=== PATIENT | male | born 1965 | race Caucasian/White ===

== ENCOUNTER 2017-12-18 10:01 | Outpatient (CLI) | payer OTHER ==
--- NOTE | 2017-12-18 10:58 | RAD ---
LUMBAR SPINE THREE VIEWS: Date: 12-18-17 Comparison: None. History: Lumbar pain. FINDINGS: Neutral lateral examination demonstrates anterolisthesis of L5 on S1 measuring 6 mm. There is retroli sthesis on neutral lateral imaging at L4-5 measuring 6 mm, at L3-4 measuring 7 mm, and at L2-3 measur ing 6 mm. With extension, the anterolisthesis of L5 on S1 decreases to 4 mm. The retrolisthesis of L4 on L5 is stable at 5-6 mm, the retrolisthesis at L3-4 is stable at 7 mm and the retrolisthesis at L2 -3 is stable at 6 mm. With flexion, anterolisthesis of L5 on S1 measures 8-9 mm. The retrolisthesis o f L4 on L5 is no longer seen. L2-3 and L3-4 levels also demonstrate no significant retrolisthesis on flexion imaging. There is disc space narrowing with anterior osteophyte formation at L2-3, L3-4, and L4-5. IMPRESSION: Degenerative changes and anterolisthesis/retrolisthesis as detailed above. POS: [facility]
== END 2017-12-18 10:02 | disposition home or self-care (01) ==
LOC: RAD 10:01
PROVIDERS: ATTEND Nurse Practitioner Family
DX: M43.17 Spondylolisthesis, lumbosacral region (principal); M43.16 Spondylolisthesis, lumbar region; M47.896 Other spondylosis, lumbar region
CPT/HCPCS: 72100

== ENCOUNTER 2018-01-23 07:55 | Outpatient (CLI) | payer OTHER ==
--- NOTE | 2018-01-23 09:24 | MRI ---
MRI LUMBAR SPINE NONCONTRAST: Date: 01/23/18 HISTORY: Low back pain with right leg radiculopathy. FINDINGS: The conus medullaris has a normal appearance. The is desiccation of the lowest four intervertebral di scs. Scattered discogenic end plate changes within the bone marrow. T12-L1, L1-2: Mild osteophytosis. Central canal and neural foramina are patent. L2-3: Disc space narrowing. Minimal degenerative retrolisthesis and disc bulge. Small amount of flui d within the facets. Central canal is patent. Mild to moderate stenosis of each neural foramen. L3-4: Disc space narrowing. Discogenic end plate changes most pronounced at this level. Posterior di sc bulge and circumferential degenerative changes with mild stenosis of the central canal and moderat e to severe stenosis of each neural foramen. L4-5: Mild disc space narrowing. Posterior disc bulge and circumferential degenerative changes. Mode rate stenosis at the central canal. Severe bilateral foraminal stenoses, right greater than left. L5-S1: Minimal degenerative spondylolisthesis. Fluid in the facets. Mild disc bulge. Thecal sac is p atent. Severe bilateral foraminal stenoses, left greater than right. IMPRESSION: Prominent multilevel degenerative changes throughout the lumbar spine. Stenoses are most severe at th e right L4-5 and left L5-S1 neural foramina. Clinical correlation regarding the right L4 and left L5 dermatomes is required. POS: [facility]
== END 2018-01-23 07:56 | disposition home or self-care (01) ==
LOC: TBSIIMAG 07:55
PROVIDERS: ATTEND Neurological Surgery
DX: M47.26 Other spondylosis with radiculopathy, lumbar region (principal); M99.83 Other biomechanical lesions of lumbar region
CPT/HCPCS: 72148

== ENCOUNTER 2018-02-03 08:28 | Outpatient (CLI) | payer OTHER ==
[2018-02-03 09:28] LABS: Hemoglobin 15.9 g/dL (14.0-18.0); Mean Corpuscular HGB CONC 32.9 g/dL (32.0-36.0); Mean Corpuscular Hemoglobin 32.2 pg (27.0-31.0); Mean Corpuscular Volume 97.7 fL (78.0-98.0); Mean Platelet Volume 8.5 fL (7.4-10.4); Platelet Count 184 thou/uL (130-400); RBC Distribution Width 13.3 % (11.5-14.5); Red Blood Cell (RBC) Count 4.95 mill/uL (4.70-6.10); White Blood Cell (WBC) Count 11.9 thou/uL (4.8-10.8)
[2018-02-03 09:47] LABS: Anion Gap 13 mmol/L (10-20); BUN (Urea Nitrogen) 14 mg/dL (8.4-25.7); Calc. Creatinine Clearance 0 mL/min (70-130); Calcium 9.5 mg/dL (7.8-10.44); Carbon Dioxide 27 mmol/L (22-29); Chloride 104 mmol/L (98-107); Estimated GFR-MDRD Greater than 90; Glucose 123 mg/dL (70-105); Sodium 140 mmol/L (136-145)
== END 2018-02-03 08:29 | disposition home or self-care (01) ==
LOC: LABBT 08:28
PROVIDERS: ATTEND Neurological Surgery
DX: Z01.818 Encounter for other preprocedural examination (principal); M54.16 Radiculopathy, lumbar region
CPT/HCPCS: 80048; 85027; 87081; 93005; 93010

== ENCOUNTER 2018-02-03 08:30 | Inpatient (IN) | payer OTHER ==
[2018-02-03 08:37] VITALS: BMI 32.1
[2018-02-09] MEDS ORDERED: CEFAZOLIN 2 GM/50 ML BAG ONE (06:22)
[2018-02-09] MEDS ORDERED: Fentanyl 100 MCG/2 ML VIAL ONE ×4 (06:29→10:18)
[2018-02-09] MEDS ORDERED: Sodium Chloride 0.9% 10 ML ONE (06:32)
[2018-02-09] MEDS ORDERED: Ondansetron HCl/PF 4 MG/2 ML Vial IVP PRN (09:25)
[2018-02-09] MEDS ORDERED: Promethazine HCl 25 MG/ML VIAL SLOW IVP PRN (09:25)
[2018-02-09] MEDS ORDERED: Promethazine HCl 25 MG/ML VIAL IM PRN ×2 (09:25→09:47)
[2018-02-09] MEDS ORDERED: diphenhydrAMINE 25 MG CAP PO PRN (09:47)
[2018-02-09] MEDS ORDERED: HYDROcodone/Acetaminophen 10/325 mg Tablet PO PRN (09:47)
[2018-02-09] MEDS ORDERED: Promethazine HCl 12.5 MG SUPP PR PRN (09:47)
[2018-02-09] MEDS ORDERED: Promethazine 25 MG TAB PO PRN (09:47)
[2018-02-09] MEDS ORDERED: diphenhydrAMINE 50 MG/ML VIAL IVP PRN (09:47)
[2018-02-09] MEDS ORDERED: Milk Of Magnesia 30 ML UDCUP PO PRN (09:47)
[2018-02-09] MEDS ORDERED: tiZANidine HCl 4 MG TAB ONE (09:47)
[2018-02-09] MEDS ORDERED: Mag-Al 1200 mg/1200 mg/30 ML UDCUP PO PRN (09:47)
--- NOTE | 2018-02-09 09:49 | OP ---
DATE OF PROCEDURE: 02/09/2018 SURGEON: Oz Kirby M.D. [facility] OPERATOR: Walter Ballard PA-C. PROCEDURES PERFORMED: L3-S1 decompressive laminectomy, posterolateral arthrodesis, pedicle screw ins trumentation, demineralized bone matrix, local morselized autograft L3-S1. PROCEDURE IN DETAIL: The patient was brought to the operating room and intubated. He was rolled in the prone position on gel-filled chest rolls. Incision was made exposing L3 through the sacrum and o ur level was confirmed by x-ray. We performed bilateral hemilaminotomies at each affected level for the purpose of decompression. We next placed pedicle screws at L3, L4, L5, and S1 bilaterally using lateral fluoroscopic guidance and positioning was confirmed with rotational x-ray. A rajani was secured between the screws and significant distraction was placed at L4-L5 and L5-S1. The rods were then se cured by nuts and final tightened. The wound was then extensively irrigated, immaculate hemostasis w as secured. A combination of demineralized bone matrix, local morselized autograft was laid over the laminar and posterolateral surfaces for the purpose of arthrodesis. Vancomycin powder was applied a nd the wound was then closed in anatomic layers.
[2018-02-09] MEDS ORDERED: ACETAMINOPHEN PO PRN (10:06)
[2018-02-09] MEDS ORDERED: CODEINE PO PRN (10:06)
[2018-02-09] MEDS ORDERED: Methocarbamol 500 MG TAB PO PRN (10:08)
[2018-02-09] MEDS: Sodium Chloride 0.9% 1,000 ML IV SCH (11:04)
[2018-02-09] MEDS: HYDROcodone/Acetaminophen 10/325 mg Tablet PO PRN ×3 (11:32→19:52)
[2018-02-09] MEDS: Morphine 4 MG/ML VIAL SLOW IVP PRN ×2 (12:43→23:09)
[2018-02-09] MEDS ORDERED: PHENYLEPHRINE-NS 100 MCG/ML 10 ML SYRINGE ONE (14:02)
[2018-02-09] MEDS ORDERED: Dexamethasone 20 MG/5 ML VIAL ONE (14:02)
[2018-02-09] MEDS ORDERED: PROPOFOL 200 MG/20 ML VIAL ONE (14:02)
[2018-02-09] MEDS ORDERED: Ketorolac Tromethamine 30 MG/ML VIAL ONE (14:02)
[2018-02-09] MEDS ORDERED: Ondansetron PF 4 MG/2 ML Vial ONE (14:02)
[2018-02-09] MEDS ORDERED: Lidocaine 1% PF 5 ML VIAL ONE (14:02)
[2018-02-09] MEDS ORDERED: ePHEDrine/0.9% NaCl/PF SYRINGE 50 mg/10 ml ONE (14:02)
[2018-02-09] MEDS ORDERED: Glycopyrrolate 0.2 MG/ML 5 ML SYRINGE ONE (14:02)
[2018-02-09] MEDS: tiZANidine HCl 4 MG TAB PO PRN ×2 (15:33→23:10)
[2018-02-09] MEDS: CEFAZOLIN 2 GM/50 ML-DEXTROSE 2 GM in Premix Bag 1 BAG IVPB SCH ×2 (15:36→23:05)
[2018-02-09] MEDS ORDERED: Ondansetron PF 4 MG/2 ML Vial IVP PRN (16:47)
[2018-02-09] MEDS: Pregabalin 75 MG CAP PO SCH (19:51)
[2018-02-10] MEDS: Sodium Chloride 0.9% 1,000 ML IV SCH ×2 (00:47→08:19)
[2018-02-10] MEDS: HYDROcodone/Acetaminophen 10/325 mg Tablet PO PRN ×2 (03:21→07:45)
[2018-02-10] MEDS: tiZANidine HCl 4 MG TAB PO PRN (05:53)
[2018-02-10 07:44] VITALS: BP 121/70; TEMP 98.4
[2018-02-10] MEDS: Pregabalin 75 MG CAP PO SCH (07:44)
[2018-02-10] MEDS: CEFAZOLIN 2 GM/50 ML-DEXTROSE 2 GM in Premix Bag 1 BAG IVPB SCH (07:45)
--- NOTE | 2018-02-10 11:38 | DIS ---
DATE OF ADMISSION: 02/09/2018 DATE OF DISCHARGE: 02/10/2018 ATTENDING PHYSICIAN: Dr. Oz Kirby. HOSPITAL COURSE: The patient is a 52-year-old male status post L3-S1 diskectomy and fusion for lumbar spondylosis. Following his procedure, he was transitioned to the med/surg floor where hi s pain was well controlled with p.o. medications, he was tolerating regular diet, and voiding appropr iately. He did have a IVON drain placed intraoperatively and its input trended down nicely with only 1 5 mL out overnight. The patient was up ambulating easily throughout the department. On my exam this morning, he is awake, alert, and comfortable. He has free active range of motion of all extremities, 5/5 strength throughout. Sensation is intact to light touch. There is a small amou nt of drainage on the dressing, which was noted immediately postop. No active drainage is appreciate d. We will plan to dismiss the patient to home. I have discussed home care precautions. The patient wa s provided scripts with hydrocodone, Zanaflex, Keflex . We will plan to follow up the patient i n 2 weeks for recheck.
== END 2018-02-10 10:10 | disposition home or self-care (01) | DRG 460 ==
LOC: SURG A 02-09 05:56
PROVIDERS: ADMIT Neurological Surgery; ATTEND Neurological Surgery
PROC: 0SG3071 Fusion of Lumbosacral Joint with Autologous Tissue Substitute, Posterior Approach, Posterior Column, Open Approach (ICD-10-PCS; principal; 2018-02-09)
PROC: 0SB40ZZ Excision of Lumbosacral Disc, Open Approach (ICD-10-PCS; 2018-02-09)
DX: M54.16 Radiculopathy, lumbar region (principal); M47.9 Spondylosis, unspecified; Z79.899 Other long term (current) drug therapy; Z79.891 Long term (current) use of opiate analgesic
CPT/HCPCS: 76001; 90471; 90686; C1713; C1768; G0008; G8978-GP-CI; G8979-GP-CI; G8980-GP-CI; J0131; J1100; J1200; J1885; J2001; J2270; J2405; J2704; J3010; J3370; J3490

== ENCOUNTER 2018-02-26 15:09 | Outpatient (CLI) | payer OTHER ==
--- NOTE | 2018-02-26 15:27 | RAD ---
TWO VIEWS OF THE LUMBAR SPINE: DATE: 02/26/2018. COMPARISON: 12/18/2017. HISTORY: Lumbar spine radiculopathy. FINDINGS: There is new multilevel posterior fusion hardware which consists of bilateral L3, L4, L5, and S1 pedi diane screws and vertically oriented interlocking rods. Cutaneous zeferino are seen posteriorly. Minimal residual retrolisthesis at L2-3, L3-4, and L4-5. There is multilevel disk space narrowing wi th degenerative end plate change and anterior osteophyte formation at L3-4 and L4-5. No evidence for hardware failure. No acute fracture. IMPRESSION: Postoperative and degenerative changes of the lumbar spine as detailed above. POS: [facility]
== END 2018-02-26 15:10 | disposition home or self-care (01) ==
LOC: TBSIIMAG 15:09
PROVIDERS: ATTEND Neurological Surgery
DX: M47.26 Other spondylosis with radiculopathy, lumbar region (principal); Z98.1 Arthrodesis status
CPT/HCPCS: 72100

== ENCOUNTER 2018-04-09 13:34 | Outpatient (CLI) | payer OTHER ==
--- NOTE | 2018-04-09 14:28 | RAD ---
TWO VIEWS LUMBAR SPINE: HISTORY: Back pain. Previous history of fusion. FINDINGS: AP and lateral views of the lumbar spine are obtained on 04/09/2018. Comparison is made to previous e xam from 02/26/2018. Two views of the lumbar spine demonstrate posterior lumbar spine fusion involving the L3, L4, L5, an d S1 vertebral levels. Lumbar spine alignment is within normal limits. Disk space height loss is se en at the L2-3, L3-4, L4-5, and l5-S1 disk spaces. Radiographic appearance of the lumbar spine is stable and unchanged since the previous exam from Dece mber of 2018. IMPRESSION: L3 through S1 fusion. No significant interval change is seen. POS: [facility]
== END 2018-04-09 13:35 | disposition home or self-care (01) ==
LOC: TBSIIMAG 13:34
PROVIDERS: ATTEND Neurological Surgery
DX: M51.36 Other intervertebral disc degeneration, lumbar region (principal); Q76.2 Congenital spondylolisthesis; Z98.1 Arthrodesis status
CPT/HCPCS: 72100

== ENCOUNTER 2018-12-15 10:41 | Outpatient (CLI) | payer OTHER ==
--- NOTE | 2018-12-15 12:40 | RAD ---
LUMBAR SPINE 4 VIEWS: INDICATION: Lumbar radiculopathy. COMPARISON: Comparison is made to lumbar film of 04/09/2018. FINDINGS: Pedicle screws and rods are again seen transfixing L3, L4, L5, and S1 levels. Loss of disk space wit h degenerative disk changes prominent at L2-3, L3-4, and L4-5, stable in appearance. Slight posterior listhesis at L3-4 is stable. Mild vertebral body height loss at L3, L4, and L5 is s table. Anterior and lateral osteophytes are unchanged. The posterior listhesis at L3-4 does not appear to have significantly changed with flexion or extensi on. IMPRESSION: Postoperative and degenerative changes lumbar spine appear stable. POS: [facility]
--- NOTE | 2018-12-15 12:59 | MRI ---
EXAM: MRI Lumbar Spine WO Con PROVIDED CLINICAL HISTORY: Lumbar radiculopathy COMPARISON: 01/23/2018 FINDINGS: 5 lumbar vertebral bodies are assumed. Lumbar alignment appears normal. Vertebral body heights appear preserved. Interval placement of bilateral pedicle screws and vertical interconnecting rods spanning L3-S1. Regional marrow signal unaffected by metallic susceptibility artifact demonstrates no significant abnormality. The conus medullaris is normal in signal and terminates at an appropriate level. At L1-2, there is no significant central canal or foraminal narrowing apparent. At L2-3, there is disc space height loss and endplate degenerative change with a broad-based disc bul ge. There is mild central canal stenosis. No significant foraminal narrowing apparent. At L3-4, there is a broad-based disc bulge and endplate degenerative changes. There is no significant central canal stenosis apparent. Mild bilateral foraminal narrowing. At L4-5, there is a broad-based disc bulge. This is eccentric in the bilateral foraminal and post for aminal regions with potential for impingement on the exiting L4 nerve roots bilaterally. At L5-S1, there is a broad-based disc bulge and bilateral facet arthritis. There is circumferential a ttenuation of the thecal sac due to prominence of the caudal epidural fat. There is bilateral foraminal narrowing, moderate-severe bilaterally, with potential for impingement on the exiting L5 ne rve roots bilaterally. IMPRESSION: Lumbar degenerative changes as described above, producing primarily foraminal narrowing that appears similar to the prior study.
== END 2018-12-15 10:42 | disposition home or self-care (01) ==
LOC: SCSMRI 10:41
PROVIDERS: ATTEND Specialist
DX: M47.26 Other spondylosis with radiculopathy, lumbar region (principal); M48.061 Spinal stenosis, lumbar region without neurogenic claudication; M48.07 Spinal stenosis, lumbosacral region
CPT/HCPCS: 72110; 72148

== ENCOUNTER 2019-03-17 21:58 | Inpatient (IN) | payer OTHER ==
[~2019-03-17 21:58] MED LIST: Iopamidol-370 76% 500 ML 1 ML ONE
[2019-03-17 22:39] LABS: #Neutrophils 9.1 thou/uL (1.40-6.50); %Eosinophils 0.1 % (0.0-10.0); %Lymphocytes 9.1 % (21.0-51.0); %Neutrophils 81.9 % (42.0-75.0); Hemoglobin 14.8 g/dL (14.0-18.0); Mean Corpuscular HGB CONC 32.8 g/dL (32.0-36.0); Mean Corpuscular Hemoglobin 32.3 pg (27.0-31.0); Mean Corpuscular Volume 98.3 fL (78.0-98.0); Mean Platelet Volume 7.9 fL (7.4-10.4); Platelet Count 159 thou/uL (130-400); RBC Distribution Width 13.2 % (11.5-14.5); Red Blood Cell (RBC) Count 4.59 mill/uL (4.70-6.10); White Blood Cell (WBC) Count 11.1 thou/uL (4.8-10.8)
--- NOTE | 2019-03-17 22:44 | CT ---
EXAM: CT pulmonary angiogram with IV contrast and 3-D MIP reconstructions PROVIDED CLINICAL HISTORY: Hypoxia COMPARISON: None FINDINGS: There is no evidence for central or segmental pulmonary embolus. Vascular calcification including cor onary calcium. The lungs are free of significant opacity. Hamartoma noted involving the left upper lobe anteriorly. No pleural fluid or pneumothorax apparent. No evidence for thoracic lymph node enlargement. The airway appears patent and of normal caliber. The visualized portions of the upper abdomen demonstrate no acute findings. The osseous structures de monstrate no concerning lytic or blastic lesions. IMPRESSION: No evidence for central or segmental pulmonary embolus.
[2019-03-17 22:55] LABS: ALT (SGPT) 18 U/L (8-55); AST (SGOT) 15 U/L (5-34); Albumin 3.7 g/dL (3.5-5.0); Alkaline Phosphatase 69 U/L (40-110); Anion Gap 13 mmol/L (10-20); BUN (Urea Nitrogen) 21 mg/dL (8.4-25.7); Bilirubin, Total 0.2 mg/dL (0.2-1.2); Calc. Creatinine Clearance 0 mL/min (70-130); Calcium 7.9 mg/dL (7.8-10.44); Carbon Dioxide 28 mmol/L (22-29); Chloride 100 mmol/L (98-107); Estimated GFR-MDRD 41; Glucose 151 mg/dL (70-105); Potassium 5.1 mmol/L (3.5-5.1); Protein, Total 6.7 g/dL (6.0-8.3); Sodium 136 mmol/L (136-145)
[2019-03-17] MEDS ORDERED: Azithromycin 500 MG VIAL ONE (23:11)
[2019-03-17 23:23] LABS: CKMB 5.9 ng/mL (0-6.6)
[2019-03-17 23:42] LABS: PTT 31.4 SEC (22.9-36.1); Prothrombin Time 13.5 SEC (12.0-14.7)
[2019-03-18] MEDS ORDERED: Enoxaparin Sodium 60 MG/0.6 ML SYRINGE ONE ×2 (00:04→00:05)
[2019-03-18] MEDS ORDERED: Sodium Chloride 0.9% 1,000 ML IV SCH (01:19)
[2019-03-18 01:26] VITALS: BMI 35.9
--- NOTE | 2019-03-18 01:52 | PDOC.HHP ---
Hospitalist HPI - History of Present Illness Lethargy History of Present Illness: Patient is a 53 year old male with PMH COPD, back pain who was brought to hospital initially for lethargy, transferred from [facility] in [place] for NSTEMI, pneumonia, PADMINI. Reports alcohol intake last night and girlfriend found him lethargic and hard to rouse and called EMS. He reports shortness of breath for last week worsening gradually. Medications reviewed and significant for multiple sedating meds including buprenorphine, buproprion, methocarbamol, zanaflex which he took yesterday in addition to 3 beers, but he normally drinks beer and takes these meds since 2018 with no issues. pain meds are due to chronic back pain from accident. At outside hospital Cr 1.7, TnI 0.07, CXR with bilateral pneumonia, CT head unremarkable, WBC 13, strep/flu screen negative, O2 sat was 85 but improved to 95 when stimulated. EKG w/ RBBB and tachycardia. In ED here, troponin had risen to 0.588, patient given lovenox, ASA, rocephin, azithromycin, Sound consulted for admission. He had narcan at outside facility with little effect. CT PE without embolism. Hospitalist ROS - Review of Systems Constitutional: reports: chills. denies: fever Eyes: denies: eyelid inflammation, redness ENT: denies: throat pain, throat swelling Respiratory: reports: cough, shortness of breath Cardiovascular: reports: chest pain Gastrointestinal: denies: nausea, vomiting, abdominal pain, diarrhea, constipation, melena, hematochezia, other Genitourinary: denies: dysuria, frequency, incontinence, hematuria, retention, other Musculoskeletal: denies: neck pain, shoulder pain, arm pain, back pain, hand pain, leg pain, foot pain, other Skin: denies: rash, lesions, vidhi, bruising, other Neurological: denies: weakness, numbness All other systems reviewed; all pertinent +/- noted in HPI/Subj Hospitalist History - Past Medical History Other Medical History: COPD chronic back pain - Past Surgical History Other Surgical History: back surgery - Family History Family History: reports: no pertinent history - Social History Smoking Status: Current every day smoker - Exam General Appearance: NAD, awake alert Eye: PERRL, anicteric sclera ENT: normocephalic atraumatic, no oropharyngeal lesions, moist mucosa Neck: supple, symmetric, no JVD, no thyromegaly, no lymphadenopathy, no carotid bruit Heart: RRR, no murmur, no gallops, no rubs, normal peripheral pulses Respiratory: CTAB, no wheezes, no rales, no ronchi, normal chest expansion, no tachypnea, normal percussion Gastrointestinal: soft, non-tender, non-distended, normal bowel sounds, no palpable masses, no hepatomegaly, no splenomegaly, no bruit Extremities: no cyanosis, no clubbing, no edema Skin: normal turgor, no lesions, no rashes Neurological: cranial nerve grossly intact, normal sensation to touch, no weakness, no focal deficits, no new deficit Musculoskeletal: normal tone, normal strength, no muscle wasting Psychiatric: normal affect, normal behavior, A&O x 3 Hospitalist Results - Labs Result Diagrams: 03/17/19 22:25 03/17/19 22:25 Lab results: WBC 11.1 thou/uL (4.8-10.8) H 03/17/19 22:25 Hgb 14.8 g/dL (14.0-18.0) 03/17/19 22:25 Hct 45.1 % (42.0-52.0) 03/17/19 22:25 MCV 98.3 fL (78.0-98.0) H 03/17/19 22:25 Plt Count 159 thou/uL (130-400) 03/17/19 22:25 Neutrophils % 81.9 % (42.0-75.0) H 03/17/19 22:25 Sodium 136 mmol/L (136-145) 03/17/19 22:25 Potassium 5.1 mmol/L (3.5-5.1) 03/17/19 22:25 Chloride 100 mmol/L (98-107) 03/17/19 22:25 Carbon Dioxide 28 mmol/L (22-29) 03/17/19 22:25 BUN 21 mg/dL (8.4-25.7) 03/17/19 22:25 Creatinine 1.73 mg/dL (0.7-1.3) H 03/17/19 22:25 Glucose 151 mg/dL (70-105) H 03/17/19 22:25 Calcium 7.9 mg/dL (7.8-10.44) 03/17/19 22:25 Total Bilirubin 0.2 mg/dL (0.2-1.2) 03/17/19 22:25 AST 15 U/L (5-34) 03/17/19 22:25 ALT 18 U/L (8-55) 03/17/19 22:25 Alkaline Phosphatase 69 U/L (40-110) 03/17/19 22:25 CK-MB (CK-2) 5.9 ng/mL (0-6.6) 03/17/19 22:25 Troponin I 0.588 ng/mL (< 0.028) H* 03/17/19 22:25 B-Natriuretic Peptide 228.7 pg/mL (0-100) H 03/17/19 22:25 Serum Total Protein 6.7 g/dL (6.0-8.3) 03/17/19 22:25 Albumin 3.7 g/dL (3.5-5.0) 03/17/19 22:25 Additional comment: EKG reviewed - EKG Interpretation EKG: BP: 101/75 Pulse: 103 Resp: 18 Temp: 98.9 (Oral) Pain: 0 O2 sat: 96 on (Room Air) Time: 03/18/2019 00:38. Hospitalist H&P A/P - Plan Plan: Patient is a 53 year old male with PMH COPD, back pain who was brought to hospital initially for lethargy, transferred from [facility] in [place] for NSTEMI, pneumonia, PADMINI. # bilateral pneumonia - continue azithromycin/ceftriaxone # NSTEMI - trend troponin, consult cardiology, continue lovenox/ASA/statin/beta jose a - sees Dr Ann never had stress test or echo he reports no cardiac history # sepsis due to pneumonia - treat as above # PADMINI - presume due to sepsis, hydrate 1L and repeat BMP daily # hypoxia - resolved, due to pna
[2019-03-18 02:05] LABS: Troponin I 0.871 ng/mL (< 0.028)
[2019-03-18] MEDS ORDERED: Promethazine HCl 12.5 MG in Sodium Chloride 0.9% 50 ML IVPB PRN (02:24)
[2019-03-18] MEDS ORDERED: Ondansetron PF 4 MG/2 ML Vial IVP PRN (02:24)
[2019-03-18] MEDS ORDERED: hydrALAZINE 20 MG/ML VIAL SLOW IVP PRN (02:24)
[2019-03-18] MEDS ORDERED: cloNIDine 0.1 MG TAB PO PRN (02:24)
[2019-03-18] MEDS ORDERED: Methocarbamol 500 MG TAB PO PRN (02:44)
[2019-03-18] MEDS ORDERED: tiZANidine HCl 4 MG TAB PO PRN (02:44)
[2019-03-18] MEDS ORDERED: Acetaminophen/Codeine 30-300mg Tablet PO PRN (02:44)
[2019-03-18] MEDS ORDERED: Senokot S 8.6-50 MG TAB PO PRN (02:45)
[2019-03-18] MEDS ORDERED: Acetaminophen 325 MG TAB PO PRN (02:45)
[2019-03-18] MEDS ORDERED: Bisacodyl 5 MG TAB PO PRN (02:45)
[2019-03-18] MEDS ORDERED: Ampicillin/Sulbactam 3 GM in Sodium Chloride 0.9% 100 ML IVPB SCH (03:00)
[2019-03-18] MEDS: Nitroglycerin 0.4 MG TAB (25 Tab Bottle) SL PRN ×3 (03:17→09:37)
[2019-03-18 04:51] LABS: #Lymphocytes 1.2 thou/uL (1.20-3.40); #Monocytes 1.5 thou/uL (0.11-0.59); #Neutrophils 8.9 thou/uL (1.40-6.50); %Basophils 0.3 % (0.0-1.0); %Eosinophils 0.1 % (0.0-10.0); %Lymphocytes 10.3 % (21.0-51.0); %Monocytes 13.1 % (0.0-10.0); %Neutrophils 76.3 % (42.0-75.0); Hemoglobin 13.7 g/dL (14.0-18.0); Mean Corpuscular HGB CONC 32.5 g/dL (32.0-36.0); Mean Corpuscular Volume 98.3 fL (78.0-98.0); Mean Platelet Volume 7.7 fL (7.4-10.4); Platelet Count 186 thou/uL (130-400); RBC Distribution Width 13.1 % (11.5-14.5); Red Blood Cell (RBC) Count 4.28 mill/uL (4.70-6.10); White Blood Cell (WBC) Count 11.7 thou/uL (4.8-10.8)
[2019-03-18 05:16] LABS: Anion Gap 11 mmol/L (10-20); BUN (Urea Nitrogen) 25 mg/dL (8.4-25.7); Calc. Creatinine Clearance 78 mL/min (70-130); Calcium 7.4 mg/dL (7.8-10.44); Carbon Dioxide 27 mmol/L (22-29); Chloride 100 mmol/L (98-107); Estimated GFR-MDRD 40; Glucose 131 mg/dL (70-105); Potassium 5.3 mmol/L (3.5-5.1); Sodium 133 mmol/L (136-145)
[2019-03-18 05:21] LABS: Critical Call Chem Troponin I RESULT DECREASING; Troponin I 0.848 ng/mL (< 0.028)
[2019-03-18] MEDS ORDERED: Aspirin 325 MG TAB PO SCH (08:00)
[2019-03-18] MEDS ORDERED: FLU VACC QS2019-20(6MOS UP)/PF 60 MCG/0.5 ML SYRINGE IM ONE (09:00)
[2019-03-18] MEDS ORDERED: BELBUCA 300 MCG FS SCH (09:00)
[2019-03-18] MEDS ORDERED: Buprenorphine HCl 2 MG SL TAB SL SCH (09:00)
[2019-03-18] MEDS ORDERED: Azithromycin 250 MG TAB PO SCH (09:00)
[2019-03-18] MEDS: Azithromycin 250 MG TAB PO SCH (09:22)
[2019-03-18] MEDS: Pregabalin 75 MG CAP PO SCH ×2 (09:23→21:32)
[2019-03-18] MEDS: Metoprolol Tartrate 25 MG TAB PO SCH ×2 (09:24→21:32)
[2019-03-18] MEDS: Enoxaparin Sodium 120 MG/0.8 ML SYRINGE SC SCH ×2 (09:24→21:28)
[2019-03-18] MEDS: Polyethylene Glycol 3350 17 GM Packet PO SCH (09:24)
[2019-03-18] MEDS ORDERED: Morphine 4 MG/ML VIAL SLOW IVP SCH (10:15)
[2019-03-18] MEDS ORDERED: Iopamidol 370 76% 50 ML VIAL FS ONE (10:36)
[2019-03-18] MEDS ORDERED: Iopamidol 370 76% 100 ML VIAL ONE (10:36)
[2019-03-18 10:41] LABS: Critical Call Chem Troponin I RESULT DECREASING; Troponin I 0.788 ng/mL (< 0.028); Troponin I 0.813 ng/mL (< 0.028)
[2019-03-18] MEDS ORDERED: Morphine 4 MG/ML VIAL SLOW IVP PRN (11:13)
[2019-03-18] MEDS: Sodium Chloride 0.9% 1,000 ML IV SCH ×2 (12:29→22:23)
[2019-03-18] MEDS ORDERED: Nitroglycerin 2% Ointment 1 INCH/1 GM Packet TOP SCH (13:00)
[2019-03-18] MEDS ORDERED: Communication Order-Pharmacy FS SCH (13:15)
[2019-03-18] MEDS ORDERED: Heparin (Artline) 1,000 ML ONE (14:34)
[2019-03-18] MEDS ORDERED: Verapamil 5 MG/2 ML VIAL ONE (15:55)
[2019-03-18] MEDS ORDERED: Nitroglycerin 100MG/250ML BOT 250 ML ONE (15:55)
[2019-03-18] MEDS ORDERED: Heparin 10,000 UNITS/1 ML VIAL ONE (15:55)
[2019-03-18] MEDS ORDERED: Aggrastat 12.5 MG/250 ML 250 ML ONE (17:45)
[2019-03-18] MEDS ORDERED: Aggrastat 12.5 MG/250 ML 250 ML IVPB SCH (18:33)
--- NOTE | 2019-03-18 19:10 | CON ---
DATE OF CONSULTATION: 03/18/2019 INDICATION FOR CONSULTATION: A 53-year-old patient with chest pain and history of coronary artery disease. HISTORY OF PRESENT ILLNESS: This very pleasant gentleman, who I saw in the office on February 08, [address] Pinon for evaluation of coronary artery disease. He had undergone a CT scan, which showed calcium scoring. Back in the middle of January, he has some atheromatous calcifications of aorta and also the coronary arteries. He was advised to undergo a stress test. He did not present to the office for this. Yet, he failed to show for the appointment or to schedule the appointment. He has been smoking for about 30 years. He continues to smoke. He has smoked up to one or two packs a day, but now has decreased cigarettes down to about 3 to 4 cigarettes a day. He says he drinks 3 or 4 beers every day. He denied any previous chest pain when he was in the office. However, early this morning or yesterday evening, he started having some chest discomfort and presented to the emergency room. Cardiac enzymes were indeterminate, but he continued to have some chest discomfort. He will be advised to undergo cardiac catheterization today. PAST MEDICAL HISTORY: Significant for lumbar disk herniation with intermittent lumbago. He has lumbosacral radiculopathy, osteoarthritis, panic attacks, and anxiety. He has had a pulmonary nodule, which is being evaluated and he had coronary artery disease. He has had surgical procedures, he had lumbar surgery performed. FAMILY HISTORY: Noncontributory. SOCIAL HISTORY: I believe he is single. He continues to smoke. He has alcohol use as noted above. ALLERGIES: NONE. MEDICATIONS: His medications prior to admission included; 1. Bupropion. 2. Alprazolam. 3. Tizanidine. 4. Tylenol with codeine. 5. Testosterone. 6. Belbuca and medications otherwise, I believe there were no other medications. PHYSICAL EXAMINATION: GENERAL: Reveals a well-developed, well-nourished gentleman, somewhat groggy in his presentation, but is answering questions appropriately. VITAL SIGNS: First of all vital signs show a blood pressure 109/72. He is afebrile, heart rate was in the 80s and it showed sinus rhythm with a right bundle-branch block. O2 saturations were 93% and respiratory rate was 16. HEENT: Shows the head to be normocephalic and atraumatic. Carotid pulses are present. There were no significant bruits. CHEST: Clear to auscultation. CARDIOVASCULAR: Reveals a regular rate and rhythm. There were no gross murmurs. ABDOMEN: Unremarkable, soft, and nontender. Positive bowel sounds. EXTREMITIES: Show no clubbing, cyanosis, or edema. Pedal pulses are present. NEUROLOGIC: No gross focal deficits, but the patient does appear to be somewhat lethargic today. LABORATORY DATA: Shows a WBC of 11.1, hemoglobin of 14.8, hematocrit 45, and platelet count was 159,000. His sodium was 132, the potassium of 5.3, creatinine is 1.78 with a BUN of 25, glucose was 131, and calcium was 7.4. His first troponin I was 0.58, it has increased up to 0.871 and the next was 0.78 and then increased again up to 0.81. His BNP was 228. ASSESSMENT AND PLAN: He continues to have some chest discomfort. He will be advised to undergo cardiac catheterization for evaluation of extent of his coronary artery disease. I have explained the procedure and the risks to him to include bleeding, infection, possible myocardial infarction, CVA, renal insufficiency, allergic contrast reaction, and possibility of . He understands, agrees to proceed. We will plan for cardiac catheterization today. Job ID: [id number]
[2019-03-18] MEDS: TICAGRELOR 90 MG TABLET PO SCH (21:32)
[2019-03-18] MEDS: Atorvastatin Calcium 40 MG TAB PO SCH (21:32)
[2019-03-18] MEDS ORDERED: TICAGRELOR 90 MG TABLET ONE (22:52)
[2019-03-19] MEDS ORDERED: cefTRIAXone\\ROCEPHIN 1 GM in Sodium Chloride 0.9% 100 ML IVPB SCH ×2 (02:30→03:00)
[2019-03-19] MEDS ORDERED: Aggrastat 12.5 MG/250 ML 250 ML IVPB SCH (03:00)
[2019-03-19] MEDS: Sodium Chloride 0.9% 1,000 ML IV SCH ×2 (04:18→11:02)
[2019-03-19 04:44] LABS: #Eosinphils 0.1 thou/uL (0.0-0.7); #Lymphocytes 1.6 thou/uL (1.20-3.40); #Neutrophils 7.1 thou/uL (1.40-6.50); %Basophils 0.2 % (0.0-1.0); %Eosinophils 0.5 % (0.0-10.0); %Lymphocytes 16.5 % (21.0-51.0); %Monocytes 9.9 % (0.0-10.0); %Neutrophils 72.9 % (42.0-75.0); Hemoglobin 12.9 g/dL (14.0-18.0); Mean Corpuscular HGB CONC 32.8 g/dL (32.0-36.0); Mean Corpuscular Hemoglobin 32.2 pg (27.0-31.0); Mean Corpuscular Volume 97.9 fL (78.0-98.0); Mean Platelet Volume 8.4 fL (7.4-10.4); Platelet Count 190 thou/uL (130-400); RBC Distribution Width 13.1 % (11.5-14.5); Red Blood Cell (RBC) Count 4.02 mill/uL (4.70-6.10); White Blood Cell (WBC) Count 9.7 thou/uL (4.8-10.8)
[2019-03-19 05:11] LABS: ALT (SGPT) 18 U/L (8-55); AST (SGOT) 19 U/L (5-34); Albumin 3.3 g/dL (3.5-5.0); Alkaline Phosphatase 53 U/L (40-110); Anion Gap 11 mmol/L (10-20); BUN (Urea Nitrogen) 30 mg/dL (8.4-25.7); Bilirubin, Total 0.2 mg/dL (0.2-1.2); Calc. Creatinine Clearance 86 mL/min (70-130); Calcium 7.9 mg/dL (7.8-10.44); Carbon Dioxide 27 mmol/L (22-29); Chloride 104 mmol/L (98-107); Estimated GFR-MDRD 45; Globulin 2.8 g/dL (2.4-3.5); Glucose 99 mg/dL (70-105); Magnesium 2.3 mg/dL (1.6-2.6); Potassium 4.5 mmol/L (3.5-5.1); Protein, Total 6.1 g/dL (6.0-8.3); Sodium 137 mmol/L (136-145)
[2019-03-19] MEDS: Pregabalin 75 MG CAP PO SCH ×2 (08:12→20:55)
[2019-03-19] MEDS: Azithromycin 250 MG TAB PO SCH (08:13)
[2019-03-19] MEDS: Metoprolol Tartrate 25 MG TAB PO SCH ×2 (08:13→20:54)
[2019-03-19] MEDS: Aspirin Chewable 81 MG TAB PO SCH (08:13)
[2019-03-19] MEDS: Polyethylene Glycol 3350 17 GM Packet PO SCH (08:14)
[2019-03-19] MEDS: TICAGRELOR 90 MG TABLET PO SCH ×2 (08:14→20:54)
--- NOTE | 2019-03-19 10:32 | PDOC.HOSPP ---
- Subjective Encounter Date: 03/19/19 (f/u PADMINI) Encounter Time: 10:28 Subjective: Pt without complaints -denies any cough/n/v/abd pain, denies any dyspnea or chest pain - Objective Vital Signs & Weight: Vital Signs (12 hours) Temp Pulse Resp BP Pulse Ox 03/19/19 08:09 98.7 F 80 16 131/82 96 03/19/19 04:00 98.6 F 74 18 112/68 94 L 03/19/19 00:00 74 16 130/79 92 L Weight Admit Weight 258 lb Weight 258 lb I&O: 03/18/19 03/19/19 03/20/19 06:59 06:59 06:59 Intake Total 2937 Balance 2937 Result Diagrams: 03/19/19 04:23 03/19/19 04:23 EKG Reviewed by me: Yes (tele - [email or web address]) Hospitalist ROS - Medication Medications: Active Medications Generic Name Dose Route Start Last Admin Trade Name Freq PRN Reason Stop Dose Admin Acetaminophen 650 mg 03/18/19 02:45 03/18/19 09:41 Tylenol PO 650 mg Q4H PRN Administration Headache/Fever/Mild Pain (1-3) Aspirin 81 mg 03/19/19 09:00 03/19/19 08:13 Aspirin Chewable PO 81 mg DAILY KANWAL Administration Atorvastatin Calcium 40 mg 03/18/19 21:00 03/18/19 21:32 Lipitor PO 40 mg HS KANWAL Administration Azithromycin 250 mg 03/18/19 09:00 03/19/19 08:13 Zithromax PO 03/21/19 09:01 250 mg DAILY KANWAL Administration Ceftriaxone Sodium 1 gm/ 100 mls @ 200 mls/hr 03/19/19 03:00 03/19/19 03:05 Sodium Chloride IVPB 03/23/19 03:01 100 mls Q24HR KANWAL Administration Sodium Chloride 1,000 mls @ 100 mls/hr 03/18/19 11:15 03/19/19 04:18 Normal Saline 0.9% IV 1,000 mls .Q10H KANWAL Administration Metoprolol Tartrate 12.5 mg 03/18/19 09:00 03/19/19 08:13 Lopressor PO 12.5 mg BID KANWAL Administration Nitroglycerin 0.4 mg 03/18/19 02:13 03/18/19 09:37 Nitrostat SL 1 tab Q5MIN PRN Administration Chest Pain Ondansetron HCl 4 mg 03/18/19 02:24 03/18/19 21:32 Zofran IVP 4 mg Q6H PRN Administration Nausea/Vomiting, use 1st Pantoprazole Sodium 40 mg 03/18/19 09:00 03/19/19 08:13 Protonix PO 40 mg DAILY KANWAL Administration Polyethylene Glycol 17 gm 03/18/19 09:00 03/19/19 08:14 Miralax PO Not Given DAILY KANWAL Pregabalin 75 mg 03/18/19 09:00 03/19/19 08:12 Lyrica PO 75 mg BID KANWAL Administration Ticagrelor 90 mg 03/18/19 21:00 03/19/19 08:14 Brilinta PO 90 mg BID KANWAL Administration - Exam General Appearance: NAD Heart: RRR, no murmur Respiratory: CTAB, no wheezes, no rales, no ronchi Respiratory - other findings: distant breath sounds Gastrointestinal: soft, non-tender, non-distended, normal bowel sounds Extremities: no cyanosis, no clubbing, no edema Psychiatric: normal affect Hosp A/P (1) PADMINI (acute kidney injury) Code(s): N17.9 - ACUTE KIDNEY FAILURE, UNSPECIFIED Status: Acute (2) NSTEMI (non-ST elevated myocardial infarction) Code(s): I21.4 - NON-ST ELEVATION (NSTEMI) MYOCARDIAL INFARCTION Status: Acute (3) Coronary artery disease Code(s): I25.10 - ATHSCL HEART DISEASE OF [place] CORONARY ARTERY W/O ANG PCTRS Status: Acute (4) COPD (chronic obstructive pulmonary disease) Status: Acute - Plan NSTEMI now s/p stent placement with Dr. Ann - aspirin, brillinta, statin - cleared for discharge PADMINI - uncertain of baseline - was normal a year ago - check renal US - UA - Nephrology consult - continue low rate IVF as pt has had 2 contrast studies (CT-A and cath) dvt prophy - ambulatory gi prophy - not indicated code status full reviewed plan of care wiht patient, no questions or further needs at end of eval D/w Dr. Sandhu - will hydrate overnight, and if creatinine stable plan for discharge tomorrow with outpatient Nephrology follow up.
--- NOTE | 2019-03-19 10:32 | ULT ---
US Renal Bilateral STANDARD History: Acute kidney injury Comparison: None. Findings: Real-time grayscale and color evaluation of the kidneys and urinary bladder was performed. Right kidney measures 11.7 x 6 x 6.8 cm and the left kidney measures 11.3 x 6.5 x 6.3 cm. Prevoid uri nary bladder volume is 183 mL. No renal mass, hydronephrosis, or abnormal calcifications. Impression: No evidence for obstructive uropathy.
[2019-03-19 12:06] LABS: Bacteria/HPF None Seen HPF (None Seen); Bilirubin Negative (Negative); Blood, Urine Negative (Negative); Clarity Clear (Clear); Glucose, Urine (Dipstick) Normal (Negative); Leukocyte Negative Leu/uL (Negative); Nitrite Negative (Negative); Protein, Urine (Dipstick) 20 mg/dL (Neg-Trace); RBC/HPF 0-3 HPF (0-3); Squamous Epithelial 0-3 HPF (0-3); Urobilinogen Normal mg/dL (Less than 2); WBC/HPF 0-3 HPF (0-3)
--- NOTE | 2019-03-19 12:52 | PDOC.CPN ---
- Subjective Date: 03/19/19 Time: 13:03 Interval history: The pt seen and examined. No overnight events. No cardiac complaints. - Objective Allergies/Adverse Reactions: Allergies Allergy/AdvReac Type Severity Reaction Status Date / Time No Known Allergies Allergy Verified 02/03/18 08:37 Visit Medications: Current Medications Acetaminophen (Tylenol) 650 mg PO Q4H PRN PRN Reason: Headache/Fever/Mild Pain (1-3) Last Admin: 03/18/19 09:41 Dose: 650 mg Acetaminophen/Codeine Phosphate (Tylenol #3) 2 tab PO Q4H PRN PRN Reason: Moderate Pain (4-6) Aspirin (Aspirin Chewable) 81 mg PO DAILY [facility] Last Admin: 03/19/19 08:13 Dose: 81 mg Atorvastatin Calcium (Lipitor) 40 mg PO HS [facility] Last Admin: 03/18/19 21:32 Dose: 40 mg Bisacodyl (Dulcolax) 10 mg PO DAILYPRN PRN PRN Reason: Constipation Clonidine (Catapres) 0.1 mg PO Q4H PRN PRN Reason: SBP > 160, use second Hydralazine HCl (Apresoline) 10 mg SLOW IVP Q6H PRN PRN Reason: SBP GREATER THAN 160 Sodium Chloride (Normal Saline 0.9%) 1,000 mls @ 50 mls/hr IV .Q20H [facility] Last Admin: 03/19/19 11:02 Dose: Not Given Methocarbamol (Robaxin) 500 mg PO Q6H PRN PRN Reason: Pain Metoprolol Tartrate (Lopressor) 12.5 mg PO BID [facility] Last Admin: 03/19/19 08:13 Dose: 12.5 mg Miscellaneous Medication (Pharmacy To Dose) 1 each IVPB PRN PRN PRN Reason: Pharmacy to dose Morphine Sulfate (Morphine) 4 mg SLOW IVP Q6H PRN PRN Reason: SEVERE OR BREAKTHRU PAIN Nitroglycerin (Nitrostat) 0.4 mg SL Q5MIN PRN PRN Reason: Chest Pain Last Admin: 03/18/19 09:37 Dose: 1 tab Ondansetron HCl (Zofran) 4 mg IVP Q6H PRN PRN Reason: Nausea/Vomiting, use 1st Last Admin: 03/18/19 21:32 Dose: 4 mg Pantoprazole Sodium (Protonix) 40 mg PO DAILY [facility] Last Admin: 03/19/19 08:13 Dose: 40 mg Belbuca ( Buprenorphine) 300 Mcg Buccal Film 1 each FS DAILY [facility] Polyethylene Glycol (Miralax) 17 gm PO DAILY [facility] Last Admin: 03/19/19 08:14 Dose: Not Given Pregabalin (Lyrica) 75 mg PO BID [facility] Last Admin: 03/19/19 08:12 Dose: 75 mg Senna/Docusate Sodium (Senokot S) 2 tab PO BIDPRN PRN PRN Reason: Constipation Ticagrelor (Brilinta) 90 mg PO BID [facility] Last Admin: 03/19/19 08:14 Dose: 90 mg Tizanidine HCl (Zanaflex) 4 mg PO Q6H PRN PRN Reason: SPASM Vital Signs & Weight: Vital Signs Temp Pulse Pulse Pulse Resp BP BP 03/19/19 11:35 97.9 F 74 20 03/19/19 11:24 75 72 135/84 140/83 03/19/19 08:09 98.7 F 80 16 03/19/19 04:00 98.6 F 74 18 BP Pulse Ox Pulse Ox Pulse Ox 03/19/19 11:35 135/84 96 03/19/19 11:24 96 96 03/19/19 08:09 131/82 96 03/19/19 04:00 112/68 94 L Admit Weight 258 lb Weight 258 lb - Physical Exam General: alert & oriented x3 HEENT: mucus membranes moist Neck: supple neck Cardiac: regular rate and rhythm, S1/S2 Lungs: clear to auscultation - Labs Result Diagrams: 03/19/19 04:23 03/19/19 04:23 Troponin/CKMB CK-MB (CK-2) 5.9 ng/mL (0-6.6) 03/17/19 22:25 Troponin I 0.788 ng/mL (< 0.028) H* 03/18/19 10:07 - Telemetry Sinus rhythms and dysrhythmias: sinus rhythm - Assessment/Plan Assessment/Plan: 1. NSTEMI with s/p YANDY (Synergy) stent in mid LAD on 03/18/2019 - Bblocker, aspirin, brillinta, statin; Instructed the pt not to stop Brilinta and ASA for at least 1 year. He voiced understanding 2. PADMINI - renal u/s is normal; Nephrology consult 3. current smoker and ETOH abuse - smoking and ETOH cessation education given to the pt MAR reviewed * From Cardiac standpoint, the pt is stable to d/c home around [id number] today; The pt will f/u with Dr Ann' office within 2-4 wks. Brilinta coupon will be given to the pt at discharge. Pt. seen and eval. by me. No complaints today. No chest pain. S/P stent to the LAD. F/U in 2-4 weeks in the office. Chest clear. RRR. More alert today.
--- NOTE | 2019-03-19 16:31 | EKG ---
Test Reason : Blood Pressure : / mmHG Vent. Rate : 077 BPM Atrial Rate : 077 BPM P-R Int : 140 ms QRS Dur : 138 ms QT Int : 366 ms P-R-T Axes : -20 -12 011 degrees QTc Int : 414 ms Normal sinus rhythm Right bundle branch block Abnormal ECG When compared with ECG of 17-MAR-2019 22:48, (Unconfirmed) No significant change was found Confirmed by DR. Mohan JONES ([id number]) on 03/19/2019 4:31:36 PM Referred By: PEDRO Confirmed By:DR. Mohan JONES
--- NOTE | 2019-03-19 17:21 | CON ---
DATE OF CONSULTATION: 03/19/2019 CONSULTING PHYSICIAN: Dr. Marina Salinas. REASON FOR CONSULTATION: Acute kidney injury. REASON FOR ADMISSION: Lethargy. HISTORY OF PRESENT ILLNESS: This is a 53-year-old male with COPD and back pain, came to the hospital with lethargy and was being treated. He had few contrast exposure also. His creatinine stays elevated, and he had a renal ultrasound done, and Nephrology is consulted. The patient is feeling better. No nausea or vomiting. No chest pain or palpitation. PAST MEDICAL HISTORY: Positive for COPD and chronic back pain. PAST SURGICAL HISTORY: Back surgery. HOME MEDICATIONS: Include: 1. Belbuca. 2. Lyrica. 3. Robaxin. 4. Zanaflex. ALLERGIES: NO KNOWN DRUG ALLERGIES. SOCIAL HISTORY: Current everyday smoker. No alcohol or illicit drug abuse. FAMILY HISTORY: No history of kidney disease. REVIEW OF SYSTEMS: CONSTITUTIONAL: Negative for weight loss or gain, ability to conduct usual activities. SKIN: Negative for rash, itching. EYES: Negative for double vision, pain. ENT/MOUTH: Negative for nose bleeding, neck stiffness, pain, tenderness. CARDIOVASCULAR: Negative for palpitations, dyspnea on exertion, orthopnea. RESPIRATORY: Negative for shortness of breath, wheezing, cough, hemoptysis, fever or night sweats. GASTROINTESTINAL: Negative for poor appetite, abdominal pain, heartburn, nausea, vomiting, constipation, or diarrhea. GENITOURINARY: Negative for urgency, frequency, dysuria, nocturia. MUSCULOSKELETAL: Negative for pain, swelling. NEUROLOGIC/PSYCHIATRIC: Negative for anxiety, depression. ALLERGY/IMMUNOLOGIC: Negative for skin rash, bleeding tendency. PHYSICAL EXAMINATION: GENERAL: This is a well-built male, in no apparent distress. VITAL SIGNS: Temperature 98.7, pulse 72, respiratory rate 18, blood pressure 120/79. HEENT: Atraumatic and normocephalic. Oral mucosa is moist. NECK: Supple. CV: S1 and S2. Rate and rhythm regular. RESPIRATORY: Clear. GASTROINTESTINAL: Abdomen is soft. MUSCULOSKELETAL: 1+ edema. DERMATOLOGIC: No skin rash. NEUROLOGIC: Awake and alert. PSYCHIATRIC: Mood and affect are normal. LABORATORY DATA: Potassium is 4.5, BUN is 30, creatinine is 1.6. ASSESSMENT AND PLAN: 1. Acute kidney injury, multifactorial, cardiorenal versus contrast nephropathy and medication. Plan is to hydrate him. Agree with NS at 50 mL/hour. Renal ultrasound with no obstruction. 2. Mild anemia. 3. Edema, uncontrolled. 4. History of hypertension. 5. Hyperkalemia, better. 6. Hyponatremia, better. Avoid nephrotoxins. Continue hydration. We will follow. Job ID: [id number]
[2019-03-19] MEDS: Atorvastatin Calcium 40 MG TAB PO SCH (20:55)
[2019-03-20 04:55] LABS: #Eosinphils 0.1 thou/uL (0.0-0.7); #Neutrophils 7.5 thou/uL (1.40-6.50); %Basophils 0.4 % (0.0-1.0); %Eosinophils 1.3 % (0.0-10.0); %Lymphocytes 18.7 % (21.0-51.0); %Monocytes 9.1 % (0.0-10.0); %Neutrophils 70.5 % (42.0-75.0); Hemoglobin 13.7 g/dL (14.0-18.0); Mean Corpuscular HGB CONC 34.2 g/dL (32.0-36.0); Mean Corpuscular Volume 96.7 fL (78.0-98.0); Platelet Count 203 thou/uL (130-400); Red Blood Cell (RBC) Count 4.15 mill/uL (4.70-6.10); White Blood Cell (WBC) Count 10.6 thou/uL (4.8-10.8)
[2019-03-20 05:17] LABS: Anion Gap 8 mmol/L (10-20); BUN (Urea Nitrogen) 23 mg/dL (8.4-25.7); Calc. Creatinine Clearance 91 mL/min (70-130); Calcium 8.4 mg/dL (7.8-10.44); Carbon Dioxide 31 mmol/L (22-29); Chloride 105 mmol/L (98-107); Estimated GFR-MDRD 48; Glucose 86 mg/dL (70-105); Magnesium 2.5 mg/dL (1.6-2.6); Sodium 140 mmol/L (136-145)
[2019-03-20] MEDS: Sodium Chloride 0.9% 1,000 ML IV SCH (05:33)
[2019-03-20] MEDS: Aspirin Chewable 81 MG TAB PO SCH (09:06)
[2019-03-20] MEDS: Metoprolol Tartrate 25 MG TAB PO SCH (09:06)
[2019-03-20] MEDS: Pregabalin 75 MG CAP PO SCH (09:06)
[2019-03-20] MEDS: Polyethylene Glycol 3350 17 GM Packet PO SCH (09:08)
[2019-03-20] MEDS: TICAGRELOR 90 MG TABLET PO SCH (09:08)
[2019-03-20] MEDS ORDERED: Metoprolol Tartrate 25 MG TAB PO SCH ×2 (09:15→21:00)
[2019-03-20 11:15] VITALS: BP 158/87; TEMP 98
--- NOTE | 2019-03-21 03:06 | DIS ---
DATE OF ADMISSION: 03/18/2019 DATE OF DISCHARGE: 03/20/2019 CONSULTANTS.: 1. Dr. Ann of Cardiology. 2. Dr. Sandhu of Nephrology. PROCEDURE PERFORMED: Cardiac catheterization with stent placement in the mid LAD. MEDICATIONS: Reconciled at discharge. New medications; 1. Aspirin 81 mg daily. 2. Atorvastatin 40 mg at bedtime, prescription for one month, one refill, further refills from Cardiology. 3. Metoprolol tartrate 25 mg b.i.d., prescription for one month, one refill, further refills from Cardiology. 4. Nitroglycerin 0.4 mg sublingual every 5 minutes as needed for chest pain. 5. Brilinta 90 mg p.o. b.i.d., prescription provided for 30 days, one refill. Further refills from Cardiology. Medications to resume; 1. Tylenol No. 4 one tablet every 4 hours as needed for back pain. 2. Buprenorphine 300 mcg film twice daily. 3. Robaxin 500 mg one every 6 hours as needed for back pain. 4. Lyrica 75 mg b.i.d. 5. Tizanidine 4 mg q.6 hours p.r.n. for back pain. FOLLOWUP: Follow up is needed, 1. With Dr. Ann or FELIPE Terrell in 2 to 3 weeks to follow up about this hospitalization, the cardiac stent, the brief episode of atrial fibrillation, and refills of all cardiac medications. 2. With Dr. Sandhu within the next week for ongoing monitoring of renal function. 3. With Dr. Johnson on March 23, 2019, at 10 a.m. 4. With a cardiac rehab program, which will contact the patient. FINAL DIAGNOSES: 1. [id number] myocardial infarction, now status post stent to the mid LAD. 2. Brief episode of atrial fibrillation. 3. Coronary artery disease. 4. Hypertension. 5. Acute kidney injury versus chronic kidney disease, stable. SECONDARY DIAGNOSES: 1. Chronic back pain. 2. Obesity. HISTORY OF PRESENT ILLNESS: Mr. Morgan is a 53-year-old male with the above medical problems, who presented to the [facility] in [place] and found to have an NSTEMI, concern for pneumonia as well as an acute kidney injury. He was found lethargic by his girlfriend and difficult to arouse, and transferred to this facility. HOSPITAL COURSE: The patient was evaluated by CT angiogram, which was negative for PE as well as negative for pneumonia and antibiotics were discontinued. His troponin remained elevated, ranging from 0.788 to 0.848, and he was taken to the catheterization lab by Dr. Ann. A drug-eluting stent was placed in the mid LAD and the patient has been on a beta jose a, aspirin, Brilinta, and statin. He will remain on the Brilinta and aspirin for at least a year. He will follow up in the outpatient setting. Overnight, the patient had an episode of brief atrial fibrillation versus atrial flutter that lasted approximately 3 minutes. He was not symptomatic from this. I reviewed this with the housekeeping associate aviation survival technician today, and we will increase his metoprolol to 25 mg b.i.d., and have the patient follow up with Dr. Ann. The patient is on aspirin and Brilinta, he does have a CHADS2-VASc score of 1, and has not been started on full anticoagulation. The patient was admitted with a creatinine of 1.7. He has received 2 contrast studies while here, as well as IV fluid for hydration and his renal function is 1.51 today. He was evaluated with a renal ultrasound that was negative, urinalysis that is normal, and by Dr. Sandhu of Nephrology. He will need ongoing monitoring to determine if this is an acute or chronic process. The patient does note that he has taken ibuprofen a lot for the chronic back pain as an outpatient. I recommend that he discontinue all NSAIDS at this time - we reviewed what this includes. The patient will need follow up with his pain medicine physician. The patient overall feeling well, asymptomatic, and does meet criteria for discharge to home. PHYSICAL EXAMINATION: VITAL SIGNS: On day of discharge, blood pressure 140/81, temperature 98.2, pulse 76, respirations 13, and sat 95% on room air. GENERAL: Awake, alert, responsive, in no apparent distress. Able to speak in full sentences. LUNGS: Clear to auscultation bilateral. HEART: Normal S1 and S2. Regular rate and rhythm. No significant murmur. ABDOMEN: Soft. Present bowel sounds. Nontender, nondistended. EXTREMITIES: No edema. HOWELL FINDINGS AND TEST RESULTS: Renal panel today 140, 4.0, 105, 31, 23, 1.51, 86. T bilirubin 0.2, AST 19, ALT 18, alkaline phosphatase 53, total protein 6.1, albumin 3.3. Troponin 0.848, 0.788, 0.813. Creatinine on admission was 1.73. CBC; 10.6, 13.7, 40.1, 203. Urinalysis was normal. Renal ultrasound performed on March 19 is negative for obstructive uropathy. CT angiogram on March 17, negative for central or segmental PE. DIET: Heart healthy. ACTIVITY: As tolerated and per cardiac rehab. CODE STATUS: Full. DISCHARGE DISPOSITION: Home. Reviewed with the patient this hospitalization, the new findings including his renal function, the recommendation to discontinue all NSAIDs, his heart and the need for aspirin and Brilinta for a year, the atrial fibrillation or flutter that occurred in the need for followup with Cardiology, and to seek care precautions. He demonstrates understanding. TIME SPENT: Total time coordinating discharge is 40 minutes. Job ID: [id number] MTDD
--- NOTE | 2019-03-22 16:11 | EKG ---
Test Reason : TIMED Blood Pressure : / mmHG Vent. Rate : 082 BPM Atrial Rate : 082 BPM P-R Int : 152 ms QRS Dur : 144 ms QT Int : 374 ms P-R-T Axes : 036 042 035 degrees QTc Int : 436 ms Normal sinus rhythm Right bundle branch block Abnormal ECG When compared with ECG of 17-MAR-2019 22:48, (Unconfirmed) No significant change was found Confirmed by DR. Mohan JONES ([id number]) on 03/22/2019 4:11:10 PM Referred By: PEDRO Confirmed By:DR. Mohan JONES
== END 2019-03-20 12:16 | disposition home or self-care (01) | DRG 247 ==
LOC: ERS 21:58 → 2NO 03-18 00:14
PROVIDERS: ADMIT Internal Medicine; ATTEND Internal Medicine
PROC: 027034Z Dilation of Coronary Artery, One Artery with Drug-eluting Intraluminal Device, Percutaneous Approach (ICD-10-PCS; principal; 2019-03-18)
PROC: B241ZZ3 Ultrasonography of Multiple Coronary Arteries, Intravascular (ICD-10-PCS; 2019-03-18)
PROC: 3E033PZ Introduction of Platelet Inhibitor into Peripheral Vein, Percutaneous Approach (ICD-10-PCS; 2019-03-18)
PROC: 4A023N7 Measurement of Cardiac Sampling and Pressure, Left Heart, Percutaneous Approach (ICD-10-PCS; 2019-03-18)
PROC: B2111ZZ Fluoroscopy of Multiple Coronary Arteries using Low Osmolar Contrast (ICD-10-PCS; 2019-03-18)
DX: I21.4 Non-ST elevation (NSTEMI) myocardial infarction (principal); N17.9 Acute kidney failure, unspecified; I48.92 Unspecified atrial flutter; E87.1 Hypo-osmolality and hyponatremia; I25.10 Atherosclerotic heart disease of native coronary artery without angina pectoris; I48.91 Unspecified atrial fibrillation; I12.9 Hypertensive chronic kidney disease with stage 1 through stage 4 chronic kidney disease, or unspecified chronic kidney disease; N18.9 Chronic kidney disease, unspecified; G89.29 Other chronic pain; E66.9 Obesity, unspecified; J44.9 Chronic obstructive pulmonary disease, unspecified; R09.02 Hypoxemia; F17.210 Nicotine dependence, cigarettes, uncomplicated; F41.9 Anxiety disorder, unspecified; M51.16 Intervertebral disc disorders with radiculopathy, lumbar region; D63.1 Anemia in chronic kidney disease; E87.5 Hyperkalemia; Z79.899 Other long term (current) drug therapy; Z28.21 Immunization not carried out because of patient refusal; Z68.36 Body mass index [BMI] 36.0-36.9, adult
CPT/HCPCS: 36415; 71275; 76770; 80048; 80053; 81001; 82553; 83735; 83880; 84484; 85025; 85347; 85610; 85730; 92928; 92977; 92978; 93005; 93010; 93458; 93798; 94760; 96365; 96372; C1753; C1769; C1874; C1887; C9600; J0153; J0456; J0696; J1644; J1650; J2270; J2405; J3246; J3490; Q9967

== ENCOUNTER 2019-06-04 07:51 | Outpatient (CLI) | payer OTHER ==
--- NOTE | 2019-06-04 12:06 | CT ---
CT SCAN LUMBAR SPINE: Date: 06/04/2019 Axial tomograms obtained with multiplanar reconstruction. INDICATION: Low back pain. Post laminectomy syndrome. FINDINGS: Pedicle screws are present at L3, L4, L5, and S1 levels. Degenerative disc changes are prominent at L 2-3, L3-4, and L4-5. Vacuum phenomenon with loss of disc space at these levels. Prominent anterior an d lateral osteophytes at these levels. Posterior alignment is maintained. At L1-2, no significant disc bulge. Facet hypertrophy without central canal stenosis. At L2-3, broad based disc bulge flattens the thecal sac. Moderate facet hypertrophy. Mild to moderate central canal stenosis. At L3-4, slight posterolisthesis. Diffuse disc bulge. Moderate facet and ligamentous hypertrophy. Sev ere central canal stenosis as a result of these changes. Bilateral foraminal stenosis. At L4-5, there is broad based disc bulge. Facet hypertrophy. Mild to moderate central canal stenosis. Bilateral foraminal stenosis. At L5-S1, there is broad based disc bulge. Facet hypertrophy. No significant central canal stenosis. Bilateral foraminal stenosis. IMPRESSION: Postoperative and degenerative changes of the lumbar spine with central canal and foraminal stenosis as described above. POS: ALBA
== END 2019-06-04 07:52 | disposition home or self-care (01) ==
LOC: SCSCT 07:51
PROVIDERS: ATTEND Specialist
DX: M96.1 Postlaminectomy syndrome, not elsewhere classified (principal); M48.061 Spinal stenosis, lumbar region without neurogenic claudication; M48.07 Spinal stenosis, lumbosacral region; M47.816 Spondylosis without myelopathy or radiculopathy, lumbar region; M47.817 Spondylosis without myelopathy or radiculopathy, lumbosacral region
CPT/HCPCS: 72131

== ENCOUNTER 2019-08-19 13:00 | Inpatient (IN) | payer OTHER ==
[2019-10-11 11:19] VITALS: BMI 33.9
[2019-10-18] MEDS ORDERED: Fentanyl 250 MCG/5 ML VIAL ONE (06:34)
[2019-10-18] MEDS ORDERED: Midazolam HCl 2 mg/2 ml Vial ONE (07:01)
--- NOTE | 2019-10-18 08:49 | OP ---
DATE OF PROCEDURE: 10/18/2019 OFFICE AUTOMATION TECHNICIAN: Diana Strange PA-C PROCEDURES PERFORMED: Exploration of spinal fusion L3 through S1, removal of hardware; revision of fusion, posterolateral arthrodesis L3 through S1; pedicle screw instrumentation, S1; BMP, cancellous bone chips. DESCRIPTION OF PROCEDURE: The patient was brought to the operating room and intubated. He was rolled in a prone position on gel-filled chest rolls. The previous incision was reopened and the prior hardware was identified. We removed the rods and nuts. As expected, bilateral S1 screws were loosened. These were removed. These were replaced with larger diameter and longer S1 screws. The left L5 screw head was also fractured and removed. The rajani was then secured between the remaining screws connected from L3 through S1, connected by nuts, which were final tightened. The wound was then extensively irrigated and MAC hemostasis was secured. The posterolateral surfaces were prepared for the purpose of arthrodesis from L3 through S1 and a combination of BMP and cancellous bone chips were laid over the posterolateral surfaces for the purpose of arthrodesis. Vancomycin powder was applied and the wound was then closed in anatomic layers. Job ID: [id number]
[2019-10-18] MEDS ORDERED: Fentanyl 100 MCG/2 ML VIAL ONE ×3 (09:06→09:59)
[2019-10-18] MEDS ORDERED: Glycopyrrolate 0.2 MG/ML 5 ML SYRINGE ONE (10:09)
[2019-10-18] MEDS ORDERED: PHENYLEPHRINE-NS 100 MCG/ML 10 ML SYRINGE ONE (10:09)
[2019-10-18] MEDS ORDERED: PROPOFOL 200 MG/20 ML VIAL ONE (10:09)
[2019-10-18] MEDS ORDERED: Rocuronium Bromide 10 MG/ML (10ML VIAL) ONE (10:09)
[2019-10-18] MEDS ORDERED: Ondansetron PF 4 MG/2 ML Vial ONE (10:09)
[2019-10-18] MEDS ORDERED: Dexamethasone 20 MG/5 ML VIAL ONE (10:09)
[2019-10-18] MEDS ORDERED: Mag-Al 1200 mg/1200 mg/30 ML UDCUP PO PRN (12:03)
[2019-10-18] MEDS ORDERED: Promethazine 25 MG TAB PO PRN (12:03)
[2019-10-18] MEDS ORDERED: Morphine 2 MG/ML VIAL SLOW IVP PRN (12:03)
[2019-10-18] MEDS ORDERED: tiZANidine HCl 4 MG TAB PO PRN (12:03)
[2019-10-18] MEDS ORDERED: Milk Of Magnesia 30 ML UDCUP PO PRN (12:03)
[2019-10-18] MEDS ORDERED: Bisacodyl 10 MG SUPP PR PRN (12:03)
[2019-10-18] MEDS ORDERED: Promethazine HCl 12.5 MG SUPP PR PRN (12:03)
[2019-10-18] MEDS ORDERED: Promethazine HCl 25 MG/ML VIAL IM PRN (12:03)
[2019-10-18] MEDS ORDERED: traMADol HCl 50 MG TAB PO PRN ×2 (12:03)
[2019-10-18] MEDS ORDERED: Ondansetron PF 4 MG/2 ML Vial IM PRN (12:03)
[2019-10-18] MEDS ORDERED: Morphine 4 MG/ML VIAL SLOW IVP PRN (12:03)
[2019-10-18] MEDS ORDERED: diphenhydrAMINE 25 MG CAP PO PRN (12:03)
[2019-10-18] MEDS ORDERED: HYDROcodone/Acetaminophen 10/325 mg Tablet PO PRN (12:03)
[2019-10-18] MEDS ORDERED: diphenhydrAMINE 50 MG/ML VIAL IVP PRN (12:03)
[2019-10-18] MEDS: HYDROcodone/Acetaminophen 10/325 mg Tablet PO PRN ×3 (12:46→20:27)
[2019-10-18] MEDS: Sodium Chloride 0.9% 1,000 ML IV SCH (12:47)
--- NOTE | 2019-10-18 14:29 | PDOC.HOSPP ---
- Subjective Encounter Date: 10/18/19 Encounter Time: 13:00 Subjective: seen for medical management consultation after hardware revision - Objective Vital Signs & Weight: Weight Weight 243 lb Result Diagrams: 10/19/19 05:09 10/19/19 05:09 EKG Reviewed by me: Yes (SR [id number]) Hospitalist ROS - Review of Systems Constitutional: denies: fever, chills, sweats, weakness, malaise, other Eyes: denies: pain, vision change, conjunctivae inflammation, eyelid inflammation, redness, other ENT: denies: ear pain, ear discharge, nose pain, nose discharge, nose congestion , mouth pain, mouth swelling, throat pain, throat swelling, other Respiratory: denies: cough, dry, shortness of breath, hemoptysis, SOB with excertion, pleuritic pain, sputum, wheezing, other Cardiovascular: denies: chest pain, palpitations, orthopnea, paroxysmal noc. dyspnea, edema, light headedness, other Gastrointestinal: denies: nausea, vomiting, abdominal pain, diarrhea, constipation, melena, hematochezia, other Genitourinary: denies: dysuria, frequency, incontinence, hematuria, retention, other Musculoskeletal: denies: neck pain, shoulder pain, arm pain, back pain, hand pain, leg pain, foot pain, other Skin: denies: rash, lesions, vidhi, bruising, other Neurological: denies: weakness, numbness, incoordination, change in speech, confusion, seizures, other All other systems reviewed; all pertinent +/- noted in HPI/Subj - Medication Medications: Allergies: NKDA Active Medications Generic Name Dose Route Start Last Admin Trade Name Jessica PRN Reason Stop Dose Admin Hydrocodone Bitart/Acetaminophen 2 tab 10/18/19 12:03 10/18/19 12:46 [place] 10/325 PO 2 tab Q4H PRN Administration PAIN (4-6) Sodium Chloride 1,000 mls @ 75 mls/hr 10/18/19 12:03 10/18/19 12:47 Normal Saline 0.9% IV 1,000 mls .[id number] KANWAL Administration - Exam General Appearance: NAD, awake alert Eye: PERRL, anicteric sclera ENT: normocephalic atraumatic, moist mucosa Neck: supple, no lymphadenopathy Heart: RRR, no murmur, no gallops, no rubs, normal peripheral pulses Respiratory: CTAB, no wheezes, no rales, no ronchi, normal chest expansion Gastrointestinal: soft, non-tender, non-distended, normal bowel sounds Extremities: no cyanosis, no edema Skin: normal turgor Psychiatric: normal affect, normal behavior Hosp A/P (1) COPD (chronic obstructive pulmonary disease) Status: Chronic (2) Coronary artery disease Code(s): I25.10 - ATHSCL HEART DISEASE OF [place] CORONARY ARTERY W/O ANG PCTRS Status: Chronic (3) CKD (chronic kidney disease) stage 3, GFR 30-59 ml/min Code(s): N18.3 - CHRONIC KIDNEY DISEASE, STAGE 3 (MODERATE) Status: Acute - Plan CKD: Currently receiving NS, has seen Dr. Sandhu in the past for this Shown on pre-surgical lab work, will repeat Recheck labs in the morning CAD: Restart on anticoags once cleared by surgical group Denies CP or SOB currently COPD: Can restart any necessary home medications Denies SOB currently Pt wishes to be a full code Surrogate decision maker: Alfredo Morgan- daughter
[2019-10-18 15:11] LABS: #Lymphocytes 0.9 thou/uL (1.20-3.40); #Monocytes 0.2 thou/uL (0.11-0.59); #Neutrophils 11.2 thou/uL (1.40-6.50); %Basophils 0.2 % (0.0-1.0); %Eosinophils 0.1 % (0.0-10.0); %Lymphocytes 6.9 % (21.0-51.0); %Monocytes 1.7 % (0.0-10.0); %Neutrophils 91.1 % (42.0-75.0); Hemoglobin 14.9 g/dL (14.0-18.0); Mean Corpuscular HGB CONC 33.3 g/dL (32.0-36.0); Mean Corpuscular Hemoglobin 32.9 pg (27.0-31.0); Mean Corpuscular Volume 98.9 fL (78.0-98.0); Mean Platelet Volume 7.4 fL (7.4-10.4); Platelet Count 199 thou/uL (130-400); Red Blood Cell (RBC) Count 4.51 mill/uL (4.70-6.10); White Blood Cell (WBC) Count 12.3 thou/uL (4.8-10.8)
[2019-10-18 15:35] LABS: ALT (SGPT) 13 U/L (8-55); AST (SGOT) 15 U/L (5-34); Albumin 3.8 g/dL (3.5-5.0); Alkaline Phosphatase 67 U/L (40-110); Anion Gap 10 mmol/L (10-20); BUN (Urea Nitrogen) 21 mg/dL (8.4-25.7); Bilirubin, Total 0.3 mg/dL (0.2-1.2); Calc. Creatinine Clearance 73 mL/min (70-130); Calcium 8.6 mg/dL (7.8-10.44); Carbon Dioxide 29 mmol/L (22-29); Chloride 100 mmol/L (98-107); Estimated GFR-MDRD 40; Globulin 3.2 g/dL (2.4-3.5); Glucose 233 mg/dL (70-105); Potassium 5.1 mmol/L (3.5-5.1); Sodium 134 mmol/L (136-145)
--- NOTE | 2019-10-18 16:07 | EKG ---
Test Reason : PREOP Blood Pressure : / mmHG Vent. Rate : 076 BPM Atrial Rate : 076 BPM P-R Int : 156 ms QRS Dur : 138 ms QT Int : 382 ms P-R-T Axes : 062 -24 020 degrees QTc Int : 429 ms Normal sinus rhythm Right bundle branch block Abnormal ECG Confirmed by LAWANDA PIERCE ([id number]) on 10/18/2019 4:07:00 PM Referred By: TOMÁS Confirmed By:LAWANDA PIERCE
[2019-10-18] MEDS: Famotidine 20 MG TAB PO SCH (20:27)
[2019-10-19] MEDS: Sodium Chloride 0.9% 1,000 ML IV SCH (02:24)
[2019-10-19] MEDS: HYDROcodone/Acetaminophen 10/325 mg Tablet PO PRN ×2 (04:20→08:35)
[2019-10-19 05:19] LABS: #Lymphocytes 1.1 thou/uL (1.20-3.40); #Neutrophils 12.9 thou/uL (1.40-6.50); %Basophils 0.2 % (0.0-1.0); %Eosinophils 0.1 % (0.0-10.0); %Lymphocytes 7.2 % (21.0-51.0); %Monocytes 6.6 % (0.0-10.0); %Neutrophils 85.8 % (42.0-75.0); Hemoglobin 14.2 g/dL (14.0-18.0); Mean Corpuscular HGB CONC 33.6 g/dL (32.0-36.0); Mean Corpuscular Hemoglobin 33.4 pg (27.0-31.0); Mean Corpuscular Volume 99.4 fL (78.0-98.0); Mean Platelet Volume 7.6 fL (7.4-10.4); Platelet Count 187 thou/uL (130-400); RBC Distribution Width 13.1 % (11.5-14.5); Red Blood Cell (RBC) Count 4.25 mill/uL (4.70-6.10)
[2019-10-19 05:38] LABS: Anion Gap 12 mmol/L (10-20); BUN (Urea Nitrogen) 19 mg/dL (8.4-25.7); Calc. Creatinine Clearance 80 mL/min (70-130); Calcium 8.7 mg/dL (7.8-10.44); Carbon Dioxide 27 mmol/L (22-29); Chloride 99 mmol/L (98-107); Estimated GFR-MDRD 45; Glucose 154 mg/dL (70-105); Potassium 4.5 mmol/L (3.5-5.1); Sodium 133 mmol/L (136-145)
[2019-10-19] MEDS ORDERED: Tamsulosin HCl 0.4 MG CAP PO SCH (06:00)
[2019-10-19 08:18] VITALS: BP 145/84; TEMP 97.9
[2019-10-19] MEDS: Famotidine 20 MG TAB PO SCH (08:32)
--- NOTE | 2019-10-19 13:44 | DIS ---
DATE OF ADMISSION: 10/18/2019 DATE OF DISCHARGE: 10/19/2019 HOSPITAL COURSE: The patient is a 54-year-old male known to us for L3-S1 fusion, who recently was seen for progressive back and leg pain. He was found to have bilateral S1 screw loosening as well as a fractured left L5 pedicle screw. He underwent removal of hardware, replacement of bilateral S1 screws with larger diameter screws, and removal of the right L5 screw as well as revision of fusion with BMP. Following the surgery, he was transitioned to the Med/Surg floor, where his pain has been well controlled with medications, he is tolerating a regular diet, and he is voiding appropriately. He has been wearing a TLSO brace for all out of bed activities. He did have some incisional drainage issues over the first night, but this was replaced with frequent dressing changes and treated with ice with improvement. On exam this morning, his vital signs are stable. He is sitting up, in no acute distress. He has free active range of motion of all extremities. No focal motor weakness. No active drainage is noted. We will go ahead and dismiss the patient to home. I discussed home care precautions. He has been provided with scripts for [place] and Keflex. We will follow up in 2 weeks with x-rays. NUT SORTER OPERATOR Deidre was checked prior to discharge. Job ID: [id number]
== END 2019-10-19 11:00 | disposition home or self-care (01) | DRG 460 ==
LOC: SURG A 10-18 05:46 → SURG B 10-18 10:47
PROVIDERS: ADMIT Neurological Surgery; ATTEND Neurological Surgery
PROC: 0SG30J1 Fusion of Lumbosacral Joint with Synthetic Substitute, Posterior Approach, Posterior Column, Open Approach (ICD-10-PCS; principal; 2019-10-18)
PROC: 0SP Lower Joints, Removal (ICD-10-PCS; 2019-10-18)
DX: T84.038A Mechanical loosening of other internal prosthetic joint, initial encounter (principal); M54.16 Radiculopathy, lumbar region; E78.5 Hyperlipidemia, unspecified; I25.10 Atherosclerotic heart disease of native coronary artery without angina pectoris; I12.9 Hypertensive chronic kidney disease with stage 1 through stage 4 chronic kidney disease, or unspecified chronic kidney disease; J44.9 Chronic obstructive pulmonary disease, unspecified; G47.33 Obstructive sleep apnea (adult) (pediatric); N18.3 Chronic kidney disease, stage 3 (moderate); F17.210 Nicotine dependence, cigarettes, uncomplicated; I25.2 Old myocardial infarction
CPT/HCPCS: 36415; 36416; 76000; 80048; 80053; 85025; 93005; 93010; C1713; J0690; J1100; J2250; J2405; J2704; J3010; J3370; J3490

== ENCOUNTER 2019-10-13 05:50 | Outpatient (CLI) | payer OTHER ==
[2019-10-13 11:40] LABS: Hemoglobin 14.9 g/dL (14.0-18.0); Mean Corpuscular HGB CONC 33.3 g/dL (32.0-36.0); Mean Corpuscular Hemoglobin 32.8 pg (27.0-31.0); Mean Corpuscular Volume 98.6 fL (78.0-98.0); Mean Platelet Volume 8.3 fL (7.4-10.4); Platelet Count 198 thou/uL (130-400); Red Blood Cell (RBC) Count 4.55 mill/uL (4.70-6.10); White Blood Cell (WBC) Count 6.3 thou/uL (4.8-10.8)
[2019-10-13 12:36] LABS: Anion Gap 14 mmol/L (10-20); BUN (Urea Nitrogen) 16 mg/dL (8.4-25.7); Calc. Creatinine Clearance 0 mL/min (70-130); Calcium 8.6 mg/dL (7.8-10.44); Carbon Dioxide 23 mmol/L (22-29); Chloride 102 mmol/L (98-107); Estimated GFR-MDRD 45; Glucose 159 mg/dL (70-105); Potassium 4.1 mmol/L (3.5-5.1); Sodium 135 mmol/L (136-145)
[2019-10-14 13:51] LABS: SARS-CoV-2 MS2 Positive; SARS-CoV-2 N Gene Negative; SARS-CoV-2 S Gene Negative; SARS-CoV-2 by NAA Not Detected (NotDetected); SARS-CoV-2 orf1ab Negative
== END 2019-10-13 05:51 | disposition home or self-care (01) ==
LOC: LABBT 05:50
PROVIDERS: ATTEND Neurological Surgery
DX: Z01.812 Encounter for preprocedural laboratory examination (principal); Z11.59 Encounter for screening for other viral diseases; M54.16 Radiculopathy, lumbar region
CPT/HCPCS: 80048; 85027; 87635; U0003

== ENCOUNTER 2020-01-04 10:31 | Outpatient (CLI) | payer OTHER ==
--- NOTE | 2020-01-04 11:13 | RAD ---
LUMBAR SPINE 2 VIEWS: HISTORY: Radiculopathy. COMPARISON: 11/08/2019. FINDINGS: The pedicle screws are again noted at the L3, L4, L5, and S1 levels. Fractured pedicle screw on the left at L5 is again noted. Posterior alignment is unchanged from the prior exam. Degenerative changes are again noted. IMPRESSION: Stable findings from 11/08/2019. POS: OFF
== END 2020-01-04 10:32 | disposition home or self-care (01) ==
LOC: SCSRAD 10:31
PROVIDERS: ATTEND Neurological Surgery
DX: M54.16 Radiculopathy, lumbar region (principal)
CPT/HCPCS: 72100

== ENCOUNTER 2020-04-10 11:28 | Outpatient (CLI) | payer OTHER ==
--- NOTE | 2020-04-10 11:48 | RAD ---
Exam: 2 views lumbar spine COMPARISON: 01/04/2020, 11/08/2019 HISTORY: Spondylolisthesis of the lumbar region. Status post surgery. Follow-up exam FINDINGS: Redemonstration of bilateral transpedicular screws at L3, L4, and S1. Redemonstration of br oken screw on the left at L5. There appears to be fracture of the right L5 screw. There also appears be a fracture involving the right L3 transpedicular screw. Spondylolisthesis: 3.7 mm of retrolisthesis of L3 upon L4. 3.5 mm of retrolisthesis of L4 upon L5. IMPRESSION: 1. Grade 1 retrolisthesis as described above. 2. Fractures involving the right L3 and L5 screw. Transcribed Date/Time: 04/10/2020 12:17 PM
== END 2020-04-10 11:29 | disposition home or self-care (01) ==
LOC: TBSIIMAG 11:28
PROVIDERS: ATTEND Neurological Surgery
DX: M43.16 Spondylolisthesis, lumbar region (principal); S32.039A Unspecified fracture of third lumbar vertebra, initial encounter for closed fracture; S32.059A Unspecified fracture of fifth lumbar vertebra, initial encounter for closed fracture
CPT/HCPCS: 72100

== ENCOUNTER 2022-07-02 10:06 | Outpatient (CLI) | payer OTHER ==
[2022-07-02 11:17] LABS: Mean Corpuscular HGB CONC 32.9 g/dL (32.0-36.0); Mean Corpuscular Hemoglobin 30.8 pg (27.0-33.0); Mean Corpuscular Volume 93.6 fl (81.2-95.1); Platelet Count 178 10x3/uL (150-450); RBC Distribution Width 15.2 % (11.5-14.5); Red Blood Cell (RBC) Count 5.19 10x6/uL (4.32-5.72); White Blood Cell (WBC) Count 7.5 10x3/uL (3.5-10.5)
[2022-07-02 11:30] LABS: Anion Gap 14 mmol/L (10-20); BUN (Urea Nitrogen) 17 mg/dL (8.4-25.7); Calc. Creatinine Clearance 0 mL/min (70-130); Calcium 8.7 mg/dL (7.8-10.44); Carbon Dioxide 25 mmol/L (22-29); Chloride 104 mmol/L (98-107); Estimated GFR 66; Glucose 71 mg/dL (70-105); Potassium 4.6 mmol/L (3.5-5.1); Sodium 138 mmol/L (136-145)
== END 2022-07-02 10:07 | disposition home or self-care (01) ==
LOC: LABBT 10:06
PROVIDERS: ATTEND Neurological Surgery
DX: Z01.818 Encounter for other preprocedural examination (principal); M54.16 Radiculopathy, lumbar region
CPT/HCPCS: 80048; 85027; 93005; 93010

== ENCOUNTER 2022-07-02 16:00 | Inpatient (IN) | payer OTHER ==
[2022-07-08] MEDS ORDERED: Thrombin 5000 UNITS/5 ML VIAL ONE (06:35)
[2022-07-08] MEDS ORDERED: Promethazine HCl 25 MG/ML VIAL IM PRN ×2 (06:56→08:14)
[2022-07-08] MEDS ORDERED: Acetaminophen 325 MG TAB PO PRN (06:56)
[2022-07-08] MEDS ORDERED: diphenhydrAMINE 25 MG CAP PO PRN (06:56)
[2022-07-08] MEDS ORDERED: Milk Of Magnesia 30 ML UDCUP PO PRN (06:56)
[2022-07-08] MEDS ORDERED: Ondansetron PF 4 MG/2 ML Vial IVP PRN (06:56)
[2022-07-08] MEDS ORDERED: Cyclobenzaprine 10 MG TAB PO PRN (06:56)
[2022-07-08] MEDS ORDERED: Promethazine 25 MG TAB PO PRN (06:56)
[2022-07-08] MEDS ORDERED: traMADol HCl 50 MG TAB PO PRN (06:56)
[2022-07-08] MEDS ORDERED: Mag-Al 1200 mg/1200 mg/30 ML UDCUP PO PRN (06:56)
[2022-07-08] MEDS ORDERED: HYDROcodone/Acetaminophen 10/325 mg Tablet PO PRN (06:56)
[2022-07-08] MEDS ORDERED: CEFAZOLIN 2 GM VIAL ONE (07:04)
[2022-07-08] MEDS ORDERED: Sodium Chloride 0.9% 100 ML ONE (07:05)
[2022-07-08] MEDS ORDERED: Fentanyl 250 MCG/5 ML VIAL ONE ×2 (07:10→09:16)
[2022-07-08] MEDS ORDERED: Midazolam HCl 2 mg/2 ml Vial ONE (07:16)
[2022-07-08] MEDS ORDERED: NEOSTIGMINE 3 MG/3 ML SYR 3 MG/3 ML SYRINGE ONE (07:26)
[2022-07-08] MEDS ORDERED: Esmolol 100 MG/10 ML VIAL ONE (07:26)
[2022-07-08] MEDS ORDERED: Ondansetron PF 4 MG/2 ML Vial ONE (07:26)
[2022-07-08] MEDS ORDERED: PROPOFOL 200 MG/20 ML VIAL ONE (07:26)
[2022-07-08] MEDS ORDERED: Dexamethasone 20 MG/5 ML VIAL ONE (07:26)
[2022-07-08] MEDS ORDERED: Glycopyrrolate 0.2 MG/ML 5 ML SYRINGE ONE (07:26)
[2022-07-08] MEDS ORDERED: PHENYLEPHRINE-NS 100 MCG/ML 10 ML SYRINGE ONE (07:26)
[2022-07-08] MEDS ORDERED: Rocuronium Bromide 10 MG/ML (10ML VIAL) ONE (07:26)
[2022-07-08] MEDS ORDERED: Ketorolac Tromethamine 30 MG/ML VIAL ONE (07:26)
[2022-07-08] MEDS ORDERED: Lidocaine 1% PF 5 ML VIAL ONE (07:26)
[2022-07-08] MEDS ORDERED: Albuterol HFA (OR) 200 PUFF INH ONE (07:26)
[2022-07-08] MEDS ORDERED: Vancomycin 1 GM VIAL ONE (07:57)
[2022-07-08] MEDS ORDERED: PACU-Morphine 4MG/ML VIAL SLOW IVP PRN (08:14)
[2022-07-08] MEDS ORDERED: HYDROmorphone 2 MG/ML VIAL SLOW IVP PRN (08:14)
[2022-07-08] MEDS ORDERED: Ondansetron HCl/PF 4 MG/2 ML Vial IVP PRN (08:14)
[2022-07-08] MEDS ORDERED: Morphine Sulfate 2 MG/ML SYRINGE SLOW IVP PRN (08:14)
[2022-07-08] MEDS ORDERED: HYDROcodone/Acetaminophen 5/325 mg Tablet ONE (13:43)
[2022-07-08] MEDS ORDERED: HYDROcodone/Acetaminophen 10/325 mg Tablet ONE (13:46)
[2022-07-08] MEDS: Pregabalin 75 MG CAP PO SCH ×4 (14:09→20:54)
[2022-07-08] MEDS: Metoprolol Tartrate 25 MG TAB PO SCH ×2 (16:19→20:54)
[2022-07-08] MEDS: Sacubitril 24MG/Valsartan 26 MG TAB PO SCH (16:20)
[2022-07-08] MEDS: Sodium Chloride 0.9% 1,000 ML IV SCH ×2 (16:22→21:00)
[2022-07-08] MEDS: Morphine 2 MG/ML VIAL SLOW IVP PRN (16:26)
[2022-07-08] MEDS: CEFAZOLIN 2 GM in Sodium Chloride 0.9% 100 ML IVPB SCH (16:27)
[2022-07-08 16:39] VITALS: BMI 34.5
[2022-07-08] MEDS: HYDROcodone/Acetaminophen 10/325 mg Tablet PO PRN (20:55)
[2022-07-08] MEDS ORDERED: Diazepam 5 MG TAB PO PRN (22:53)
[2022-07-08] MEDS ORDERED: Nitroglycerin 0.4 MG TAB (25 Tab Bottle) SL PRN (22:53)
[2022-07-08] MEDS ORDERED: Nicotine 14 MG PATCH TD PRN (23:56)
[2022-07-09] MEDS: CEFAZOLIN 2 GM in Sodium Chloride 0.9% 100 ML IVPB SCH
[2022-07-09] MEDS: Morphine 2 MG/ML VIAL SLOW IVP PRN
[2022-07-09 07:33] LABS: #Lymphocytes 1.3 thou/uL (1.20-3.40); #Monocytes 1.1 thou/uL (0.11-0.59); #Neutrophils 13.5 thou/uL (1.40-6.50); %Eosinophils 0.2 % (0.0-10.0); %Lymphocytes 8.1 % (21.0-51.0); %Monocytes 6.9 % (0.0-10.0); %Neutrophils 84.7 % (42.0-75.0); Hemoglobin 15.3 g/dL (14.0-18.0); Mean Corpuscular HGB CONC 32.4 g/dL (32.0-36.0); Mean Corpuscular Hemoglobin 31.5 pg (27.0-31.0); Mean Corpuscular Volume 97.1 fl (78.0-98.0); Mean Platelet Volume 8.9 fL (7.4-10.4); Platelet Count 183 10x3/uL (130-400); RBC Distribution Width 14.6 % (11.5-14.5); Red Blood Cell (RBC) Count 4.85 mill/uL (4.70-6.10); White Blood Cell (WBC) Count 15.9 10x3/uL (4.8-10.8)
[2022-07-09 07:45] LABS: Anion Gap 11 mmol/L (10-20); BUN (Urea Nitrogen) 16 mg/dL (8.4-25.7); Calc. Creatinine Clearance 97 mL/min (70-130); Calcium 8.7 mg/dL (7.8-10.44); Carbon Dioxide 26 mmol/L (22-29); Chloride 102 mmol/L (98-107); Estimated GFR 63; Glucose 129 mg/dL (70-105); Magnesium 2.1 mg/dL (1.6-2.6); Phosphorus 3.6 mg/dL (2.3-4.7); Potassium 4.8 mmol/L (3.5-5.1); Sodium 134 mmol/L (136-145)
[2022-07-09] MEDS: Sacubitril 24MG/Valsartan 26 MG TAB PO SCH (07:55)
[2022-07-09] MEDS: Pregabalin 75 MG CAP PO SCH (07:55)
[2022-07-09] MEDS: HYDROcodone/Acetaminophen 10/325 mg Tablet PO PRN (07:55)
[2022-07-09] MEDS: Metoprolol Tartrate 25 MG TAB PO SCH (08:07)
[2022-07-09] MEDS: Sodium Chloride 0.9% 1,000 ML IV SCH (08:07)
[2022-07-09 08:39] VITALS: BP 101/69; TEMP 98.4
[2022-07-09] MEDS ORDERED: Atorvastatin Calcium 40 MG TAB PO SCH (21:00)
== END 2022-07-09 10:35 | disposition home or self-care (01) | DRG 460 ==
LOC: SURG A 07-08 05:50 → T4-B 07-08 16:18
PROVIDERS: ADMIT Neurological Surgery; ATTEND Neurological Surgery
PROC: 0SG1071 Fusion of 2 or more Lumbar Vertebral Joints with Autologous Tissue Substitute, Posterior Approach, Posterior Column, Open Approach (ICD-10-PCS; principal; 2022-07-08)
PROC: 0SG3071 Fusion of Lumbosacral Joint with Autologous Tissue Substitute, Posterior Approach, Posterior Column, Open Approach (ICD-10-PCS; 2022-07-08)
PROC: 0SP004Z Removal of Internal Fixation Device from Lumbar Vertebral Joint, Open Approach (ICD-10-PCS; 2022-07-08)
PROC: 0SP304Z Removal of Internal Fixation Device from Lumbosacral Joint, Open Approach (ICD-10-PCS; 2022-07-08)
PROC: 3E0U0GB Introduction of Recombinant Bone Morphogenetic Protein into Joints, Open Approach (ICD-10-PCS; 2022-07-08)
DX: T84.296A Other mechanical complication of internal fixation device of vertebrae, initial encounter (principal); Y83.1 Surgical operation with implant of artificial internal device as the cause of abnormal reaction of the patient, or of later complication, without mention of misadventure at the time of the procedure; I25.10 Atherosclerotic heart disease of native coronary artery without angina pectoris; I11.0 Hypertensive heart disease with heart failure; E78.5 Hyperlipidemia, unspecified; I50.9 Heart failure, unspecified; G47.33 Obstructive sleep apnea (adult) (pediatric); F17.210 Nicotine dependence, cigarettes, uncomplicated; F41.9 Anxiety disorder, unspecified; Z95.5 Presence of coronary angioplasty implant and graft; Z79.899 Other long term (current) drug therapy; Z79.82 Long term (current) use of aspirin; Z79.02 Long term (current) use of antithrombotics/antiplatelets; Z99.89 Dependence on other enabling machines and devices
CPT/HCPCS: 36415; 80048; 83735; 84100; 85025; C1713; J1100; J1885; J2250; J2272; J2405; J2704; J3010; J3370; J3490; J7050

== ENCOUNTER 2022-07-24 13:05 | Outpatient (CLI) | payer OTHER | END 2022-07-24 13:06 | disposition home or self-care (01) | LOC: TBSIIMAG 13:05 | PROVIDERS: ATTEND Neurological Surgery | DX: M47.26 Other spondylosis with radiculopathy, lumbar region (principal); Z98.1 Arthrodesis status | CPT/HCPCS: 72100 ==

== ENCOUNTER → 2022-10-15 | Outpatient (CLI) | payer OTHER | LOC: SLEEPLAB 19:30 | PROVIDERS: ATTEND Internal Medicine Critical Care Medicine | DX: G47.33 Obstructive sleep apnea (adult) (pediatric) (principal); R06.83 Snoring; J44.9 Chronic obstructive pulmonary disease, unspecified; I50.22 Chronic systolic (congestive) heart failure; I25.10 Atherosclerotic heart disease of native coronary artery without angina pectoris | CPT/HCPCS: 95810 ==